=== PATIENT | male | born 1990 | race African-American/Black ===

== ENCOUNTER → 2018-09-01 | Outpatient (CLI) | payer OTHER ==
--- NOTE | 2018-09-01 15:11 | Diagnostic Imaging Report ---
Right knee MRI without contrast. History: Knee pain. Decreased range of motion. Pain not responding to conservative management. Meniscal injury Comparison: None. Technique: Multiplanar multi-sequence MRI of the knee without contrast. Findings: Medial compartment: Vertically oriented tear at the posterior medial meniscocapsular junction with associated sprain/partial tear of the medial capsule and medial collateral ligament. There is adjacent soft tissue edema. The medial compartmental articular cartilage surfaces are intact. Bone contusion with bone marrow edema at the posterior medial tibial plateau and peripheral medial femoral condyle. Lateral compartment: No meniscal tear or cartilage abnormality. The LCL complex is normal. Bone contusion with bone marrow edema at the anterior lateral femoral condyle and posterior lateral tibial plateau. Intercondylar notch: Full-thickness midsubstance anterior cruciate ligament tear best seen on sagittal series 3 image 22 through 24. The posterior cruciate ligament is intact. Patellofemoral compartment: No chondromalacia or patellar dislocation. Extensor mechanism: The quadriceps and patellar tendons are normal. Other findings: There is a joint effusion and synovitis. There is no subluxation or avascular necrosis. IMPRESSION: Full-thickness midsubstance anterior cruciate ligament tear. Bone contusion or bone marrow edema at the anterior lateral femoral condyle, posterior lateral tibial plateau, posterior medial tibial plateau and peripheral medial femoral condyle. Vertically oriented tear at the posterior medial meniscus OR junction with associated sprain/partial tear of the medial capsule and medial collateral ligament. Signed by: Dr. Paco Guido M.D. on 09/01/2018 3:08 PM
== END ==
LOC: MRI 13:22
PROVIDERS: ATTEND Family Medicine
DX: S83.8X1D Sprain of other specified parts of right knee, subsequent encounter (principal); S86.911D Strain of unspecified muscle(s) and tendon(s) at lower leg level, right leg, subsequent encounter